=== PATIENT | male | born 1990 | race Caucasian/White ===

== ENCOUNTER 2016-05-21 11:53 | Day surgery (SDC) | payer OTHER ==
[~2016-05-21] VITALS: Ht 182.9 cm; Wt 75.5 kg
[~2016-05-21 11:53] MED LIST: PHEN-557 PO; SODI30SP2 NS
[2016-05-21 12:51] VITALS: Ht 182.9 cm; Wt 75.5 kg
[2016-05-21] MEDS ORDERED: LIDOCAINE 4% SOLUTION 50 ML BTL ONE (13:32)
[2016-05-21] MEDS ORDERED: MIDAZOLAM 1 MG/ML 2 ML INJ ONE ×2 (14:05)
[2016-05-21] MEDS ORDERED: FENTAnyl 50 MCG/ML VIAL ONE (14:05)
[2016-05-21 14:20] VITALS: BP 113/68; PULSE 54; RESP 12
--- NOTE | 2016-05-22 07:38 | GILP ---
DATE OF PROCEDURE: PREOPERATIVE DIAGNOSIS: Dysphagia; symptoms of reflux. PROCEDURE DONE: Esophagogastroduodenoscopy and biopsy. POSTOPERATIVE DIAGNOSES: Normal esophagus, diffuse gastritis in the fundus and body of the stomach. This was biopsied. DESCRIPTION OF PROCEDURE: The patient was put in left lateral decubitus after obtaining informed co nsent. He was sedated, monitored and oximetry also was utilized. He gargled 4% Xylocaine to anesthe tize the posterior pharynx. He was given a total of 4 mg IV Versed and 100 mcg of fentanyl. Then I advanced the Olympus video upper endoscope into the esophagus, stomach and duodenum. FINDINGS: A thorough examination of the esophagus WAS done because of his history of dysphagia and r eflux but as such, the esophagus had normal mucosa and no esophagitis, no stricture and examination of the stomach showed diffuse gastritis in the fundus and body. This was photographed and biopsies were done. The antrum and duodenal bulb were easily entered. The first and second part of the duoden um were normal. Duodenal bulb was normal. Then the scope was withdrawn. Patient had no complicati on. Dear Dr. Nabil Roberts: His complaint does not match to the finding. He may require further evaluati on. He is going for ENT evaluation next week. Meanwhile, I will place him on Prilosec 20 mg every d ay and await for biopsy report. He will follow up with you. 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 Meanwhile, the patient will f ollow up in my office in 3 to 4 months. Dictated By: SANDY BAZAN Conf#: [id number] DID#: [id number] CC: Nabil Roberts;*End*
== END 2016-05-21 15:26 | disposition home or self-care (01) ==
LOC: GIL 11:53
PROVIDERS: ATTEND Internal Medicine
DX: K21.9 Gastro-esophageal reflux disease without esophagitis (principal); R13.10 Dysphagia, unspecified; I10 Essential (primary) hypertension; K29.50 Unspecified chronic gastritis without bleeding
CPT/HCPCS: 43239; 88305; 88312; J2250; J3010; Z7610